=== PATIENT | female | born 1945 | race Caucasian/White ===

== ENCOUNTER → 2021-07-04 | Outpatient (CLI) | payer MEDICARE ==
--- NOTE | 2021-07-04 09:33 | PFTRPT ---
Height: 61.00 Inches Weight: 194.00 Lbs BSA: 1.86 Diagnosis: J45.30 DATE: 07/04/2021 ORDERING PHYSICIAN: Yogi Li MD Pre and post bronchodilator studies have excellent technical quality. Forced vital capacity is normal. FEV1 is generally in proportion. Obstructive index is therefore normal. Expiratory limit of the flow-volume loop does suggest a nonspecific flow rate limitation. No significant bronchodilator response is identified. Total lung capacity is normal. Residual volume is generally in proportion. Diffusing capacity is normal. Hemoglobin is acceptable at 14. Airway resistance and conductance are normal. IMPRESSION: Nonspecific flow rate limitation. Please correlate clinically. MTDD
== END ==
LOC: M CARPUL 08:53
PROVIDERS: ATTEND Internal Medicine Pulmonary Disease
DX: J45.30 Mild persistent asthma, uncomplicated (principal)